=== PATIENT | female | born 1955 | race Caucasian/White ===

== ENCOUNTER 2016-05-04 11:10 | Inpatient (IN) | payer OTHER | END 2016-05-06 11:00 | disposition home or self-care (01) | DRG 951 | LOC: VM.MS 11:10 | PROVIDERS: ADMIT Nurse Practitioner ==

== ENCOUNTER 2019-07-06 06:23 | Emergency (ER) | payer OTHER ==
[2019-07-06 06:30] VITALS: BP 127/74; PULSE 81
--- NOTE | 2019-07-06 08:06 | CR ---
[id number] RAD/RAD Pelvis 1-2V Exam: RAD Pelvis 1-2V Clinical Data: TRAUMA COMPARISON: CORRELATION IS MADE WITH SEPTEMBER 25, 2013 FINDINGS: No new fracture or dislocation is seen There may be an old injury of the left pubic rami IMPRESSION: NO NEW FRACTURE OR DISLOCATION Leo Pisano MD 07/06/19 0805 Thank you for allowing us to participate in the care of your patient.
--- NOTE | 2019-07-06 08:07 | CR ---
[id number] RAD/RAD Lumbar Spine 2-3V EXAM: RAD Lumbar Spine 2-3V INDICATION: Fall with low back pain. COMPARISON: September 25, 2013. DISCUSSION: A mild L1 compression fracture is new relative to the comparison study, but age indeterminate. Osteopenia. The vertebral body alignment and height is otherwise unchanged. Mild degenerative disc disease throughout the lumbar spine. Arterial calcifications. IMPRESSION: 1. A mild age-indeterminate L1 compression fracture is new relative to September 25, 2013. Pablo Cooper MD 07/06/19 0806 Thank you for allowing us to participate in the care of your patient.
--- NOTE | 2019-07-24 10:00 | EDM.PDOC ---
ED HPI GENERAL MEDICAL PROBLEM - General Chief Complaint: General Stated Complaint: fall, multiple painful areas Time Seen by Provider: 07/06/19 06:26 Source of Information: Reports: Patient History Limitations: Reports: No Limitations - History of Present Illness INITIAL COMMENTS - FREE TEXT/NARRATIVE: Pt. presents to ER with complaints of pelvic and low back pain post fall. She is currently on hospice for end stage COPD. She states that she feel in the AM and was unable to get up so she called 911. 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 Pt. denies any numbness/tingling in extremities. She states that the discomfort has improved since she first fell. Did not strike her head. No LOC. No chest pain or shortness of breath. Onset: Today Onset Date: 07/24/19 Location: Reports: Back, Pelvis Quality: Reports: Ache Right Lower Back Pain Score (Numeric/FACES): 8 - Related Data Allergies Allergy/AdvReac Type Severity Reaction Status Date / Time codeine Allergy Itching Verified 07/06/19 06:26 venom-honey bee Allergy Respiratory Verified 07/06/19 06:26 [bee venom (honey bee)] Distress Home Meds: Home Meds Ipratropium/Albuterol Sulfate [Duoneb 0.5 MG-3 MG/3 ML] 3 ml NEB QID PRN [History] traZODone 100 mg PO BEDTIME 01/25/13 [History] Benzonatate 100 mg PO TID PRN 05/04/16 [History] Budesonide/Formoterol Fumarate [Symbicort 160-4.5 Mcg Inhaler] 2 puff IH BID [History] Docusate Sodium [Docusol] 283 mg RECTAL Q30M PRN 05/04/16 [History] Docusate Sodium/Sennosides [Senna Plus] 2 tab PO BID 05/04/16 [History] LORazepam 0.25 mg PO Q4H PRN 05/04/16 [History] Morphine [Morphine 20 MG/ML Soln] 2.5 mg PO Q1H PRN 05/04/16 [History] Morphine [Morphine 20 MG/ML Soln] 5 mg PO Q4H 05/04/16 [History] Ondansetron [Zofran ODT] 4 mg PO Q4H PRN 05/04/16 [History] Sodium Chloride [Saline Nasal Mist] 1 - 2 spray NASBOTH ASDIRECTED PRN 05/04/16 [History] Sodium Phosphate,Poinsett-Dibasic [Fleet Enema] 1 enema RECTAL ASDIRECTED PRN [History] Past Medical History Cardiovascular History: Reports: SOB on Exertion Respiratory History: Reports: COPD Social & Family History - Tobacco Use Smoking Status *Q: Former Smoker Used Tobacco, but Quit: Yes Month/Year Tobacco Last Used: 2012 ED ROS GENERAL - Review of Systems Review Of Systems: Comprehensive ROS is negative, except as noted in HPI. ED EXAM, GENERAL - Physical Exam Exam: See Below Exam Limited By: No Limitations General Appearance: Alert, WD/WN, No Apparent Distress Head: Atraumatic, Normocephalic Neck: Normal Inspection, Supple, Non-Tender, Full Range of Motion. No: Tender Lateral, Tender Midline Respiratory/Chest: No Respiratory Distress, Normal Breath Sounds, No Accessory Muscle Use, Chest Non-Tender, Decreased Breath Sounds, Wheezing Cardiovascular: Normal Peripheral Pulses, Regular Rate, Rhythm, No Edema, No Gallop, No JVD, No Murmur, No Rub Peripheral Pulses: 4+: Radial (R) GI/Abdominal: Normal Bowel Sounds, Soft, Non-Tender, No Organomegaly, No Distention, No Mass (Female) Exam: Deferred Rectal (Female) Exam: Deferred Back Exam: Normal Inspection, Full Range of Motion Extremities: Normal Inspection, Normal Range of Motion, Non-Tender, No Pedal Edema, Normal Capillary Refill Neurological: Alert, Oriented, CN II-XII Intact, Normal Reflexes, No Motor/ Sensory Deficits Psychiatric: Normal Affect, Normal Mood Skin Exam: Warm, Dry, Intact Course - Vital Signs Last Recorded V/S: Last Vital Signs Temp 37.4 C 07/06/19 06:26 Pulse 81 07/06/19 06:26 Resp 18 07/06/19 06:26 BP 127/74 07/06/19 06:26 Pulse Ox 100 07/06/19 06:26 - Radiology Interpretation Free Text/Narrative:: Pelvis and lumbar radiographs were obtained. No acute fracture noted. Departure - Departure Time of Disposition: 08:30 Disposition: Home, Self-Care 01 Clinical Impression: Sacral contusion - Discharge Information Instructions: Fall Prevention in the Home, Adult, [id number] Referrals: PCP,None [Primary Care Provider] - Forms: ED Department Discharge Additional Instructions: Home to rest. Continue with current medications. Follow-up in clinic as needed. Sepsis Event Note (ED) - Evaluation Sepsis Screening Result: No Definite Risk - Assessment/Plan Plan: Home to rest. Continue with current medications. Follow-up in clinic as needed.
== END 2019-07-06 08:20 | disposition home or self-care (01) ==
LOC: VM.ED 06:23
DX: S30.0XXA Contusion of lower back and pelvis, initial encounter (principal); J44.9 Chronic obstructive pulmonary disease, unspecified; Z87.891 Personal history of nicotine dependence; Z88.5 Allergy status to narcotic agent; Z91.030 Bee allergy status; Z79.899 Other long term (current) drug therapy; W19.XXXA Unspecified fall, initial encounter
CPT/HCPCS: 72100; 72170; 99284